=== PATIENT | male | born 1960 | race Caucasian/White ===

== ENCOUNTER → 2020-12-10 10:23 | Outpatient (BNVA) | payer SELFPAY | PROVIDERS: Visit Provider Orthopaedic Surgery | DX: S42.001A Fracture of unspecified part of right clavicle, initial encounter for closed fracture (principal); V89.9XXA Person injured in unspecified vehicle accident, initial encounter | CPT/HCPCS: 73000 ==

== ENCOUNTER → 2020-12-13 13:06 | Outpatient (BNVA) | payer OTHER, SELFPAY | PROVIDERS: Visit Provider Orthopaedic Surgery | DX: Z01.812 Encounter for preprocedural laboratory examination (principal); Z20.822 Contact with and (suspected) exposure to COVID-19 | CPT/HCPCS: 87635 ==

== ENCOUNTER 2020-12-19 10:47 | Day surgery (SDC) | payer SELFPAY ==
[2020-12-18 17:41] VITALS: BMI 35.2
[2020-12-19] VITALS (13 sets, daily range): BP systolic 148–190; BP diastolic 83–104; PULSE 57–80; RESP 15–23; TEMP 36.4–36.6; O2SAT 91–96
[2020-12-19] MEDS: sodium chloride 0.9% 1,000 ML 30 ML IV (12:15)
--- NOTE | 2020-12-19 13:02 | ANES.PREANE2 ---
Pre-Anesthetic Assessment Pre-Anesthetic Assessment: Height/Weight: Height 1.83 m Weight 117.934 kg Preop Diagnosis: Fracture right distal clavicle with coracoclavicular ligament Disruption Proposed Procedure: Operation Date: 12/19/20 13:00 Proposed Procedures p open coracoclavicular ligament reconstruction and distal clavicle excision [id number] s42.001A(Right) - Markie Silverio MD Was Beta Gertrude taken within 24 hours: N/A Was Clonidine taken within 24 hours: N/A Social: Social History: No alcohol and No tobacco Exam: Pre-Anes Outpt Exam: alert, oriented x 3, clear to auscultation bilaterally and regular rate & rhythm Airway: Submandibular: WNL Cervical ROM: WNL MP: 2 Dentition: Chipped Additional comments: Poor dentition, missing most Metabolic: Metabolic: Morbid obesity Anesthetic Plan: ASA status: 2 Anesthesia: General and Regional (specify below) (Discussed interscalene blk) Risk of > 500 ml blood loss (7ml/kg in children): No PFSH Anesthesia PFSH: Social History Smoking and tobacco status: never smoked Alcohol intake: current Alcohol intake frequency: holidays/special occasions only Data Anesthesia Cardiac Studies: No Data to Display
--- NOTE | 2020-12-19 13:52 | W.PM.OPSUD ---
Surgery/Procedure H&P Update DATE OF PROCEDURE: December 19, 2020 DATE H&P PERFORMED: 12/10/20 PREOP DIAGNOSIS: Fracture right distal clavicle with coracoclavicular ligament Disruption PLANNED PROCEDURE: Operation Date: 12/19/20 13:00 Proposed Procedures p open coracoclavicular ligament reconstruction and distal clavicle excision 21882 s42.001A(Right) - Markie Silverio MD
--- NOTE | 2020-12-19 15:47 | PM.OP ---
Operative Report Date of procedure: December 19, 2020 Pre-op Diagnosis: Fracture right distal clavicle with coracoclavicular ligament Disruption Post-op diagnosis: same Post-op Findings: Same Procedure Done: Open reconstruction right coracoclavicular ligaments, open right distal clavicle excision Pathology: none sent Surgeon: Markie Silverio Anesthesia: General Estimated blood loss (mL): 50 Complications: None Findings: Placed fracture of his right distal clavicle with proximal migration of the medial clavicle. His deltoid trapezial fascia were intact Condition: stable Disposition: PACU Procedure: The patient was taken to the operating room and given a general anesthesia. He was positioned in a beachchair position with his right arm exposed. He was given 2 g of Ancef. He was prepped and draped in usual fashion. A 5 cm long incision was made from the palpable end of the medial clavicle extending anteriorly. Dissection was carried down with electrocautery to the fracture site. The periosteum was elevated off the end of the medial clavicle over a distance of approximately 2 cm. The lateral bone fragments were identified in a anterior lateral position and excised resulting in removal approximately a 12 mm above distal clavicle bone fragments. The deltoid was split and this allowed us access to the superior coracoid. The Lockdown coarcoclavicular ligament reconstruction system was utilized. A large suture passer was used to shuttle the relay from medial to lateral around the distal coracoid. It was all locked around the coracoid past posterior to the clavicle and up anteriorly with the 12cm hashmarklying against the anterior clavicle with it in the reduced position. The passer was used to shuttle a 12 cm implant around the coracoid. It was fixed over the coracoid past behind the clavicle and up and anteriorly. Drill hole was placed in a posterior and slightly medial position. The tunnel was measured to a 30 mm. The clavicle was reduced and the implants screw sleeves are brought over the anterior clavicle. At 34 mm screw and washer was placed with excellent purchase securing the implant maintaining reduction of the clavicle. The wound was irrigated with saline. The periosteum and the deltoid tissue were approximate with interrupted 0 Vicryl. Subcutaneous tissues were closed with 2-0 Vicryl in a running 2-0 Stratafix. The skin was closed with a running 4-0 Stratafix and a Xeroform and OpSite dressing applied. The patient was placed in a sling. He was extubated and taken to recovery room in stable condition.
[2020-12-19] MEDS: HYDROmorphone 1 mg/mL INJ 1 mL IVP (16:08)
[2020-12-19] MEDS: oxyCODONE-APAP 5-325 mg Tablet 1 TAB PO (16:45)
--- NOTE | 2020-12-19 16:45 | ANE.PACU2 ---
Inpatient post-anesthesia follow up: Airway intact: Yes Vital signs: Temperature 98 F Pulse Rate 69 Respiratory Rate 16 Blood Pressure 167/89 Pulse Oximetry 95 Oxygen Delivery Me thod Nasal Cannula Oxygen Flow Rate 2.0 Fraction of Inspir ed Oxygen Hydration adequate: Yes Nausea and vomiting: No Pain level: 4 Mental status: Baseline
== END 2020-12-19 17:50 | disposition home or self-care (01) ==
PROVIDERS: Visit Provider Orthopaedic Surgery
PROC: (CPT 23120; principal; 2020-12-19 12:40)
DX: S42.031A Displaced fracture of lateral end of right clavicle, initial encounter for closed fracture (principal); W17.89XA Other fall from one level to another, initial encounter; E66.01 Morbid (severe) obesity due to excess calories; Z68.35 Body mass index [BMI] 35.0-35.9, adult
CPT/HCPCS: 23120; 23550; C1713; J0690; J1170; J1580; J1885; J2370; J2405; J2704; J2710; J3010; J3490; J7030